=== PATIENT | male | born 1960 | race Caucasian/White ===

== ENCOUNTER → 2021-01-09 | Outpatient (CLI) | payer OTHER | LOC: EXRD 13:48 | DX: R76.8 Other specified abnormal immunological findings in serum (principal); N18.9 Chronic kidney disease, unspecified; R93.7 Abnormal findings on diagnostic imaging of other parts of musculoskeletal system | CPT/HCPCS: 73030; 73130 ==

== ENCOUNTER → 2021-02-10 | Outpatient (CLI) | payer OTHER | LOC: KOH-I 02-03 13:00 | DX: M25.512 Pain in left shoulder (principal) | CPT/HCPCS: 73221 ==